=== PATIENT | male | born 1970 | race Caucasian/White ===

== ENCOUNTER 2023-10-13 16:52 | Emergency (ER) | payer BC, SELFPAY ==
[2023-10-13 17:40] VITALS: BP 184/139; PULSE 103; RESP 18; TEMP 36.7; O2SAT 97
--- NOTE | 2023-10-13 17:45 | ECG_ITS ---
Measurements Intervals [place] Rate: 93 P: -3 VA: 143 QRS: -15 QRSD: 96 T: 149 QT: 342 QTc: 427 Interpretive Statements SINUS RHYTHM LEFT VENTRICULAR HYPERTROPHY AND ST-T CHANGE [VOLTAGE CRITERIA PLUS ST/T ABNORMALITY] NO PREVIOUS ECG AVAILABLE FOR COMPARISON Electronically Signed On 10-14-2023 13:23:07 PIGMENT MAKING SUPERVISOR by Sharon Salas M.D.
[2023-10-13 21:49] VITALS: BP 171/125; PULSE 88; RESP 16; O2SAT 97
--- NOTE | 2023-10-13 22:57 | ED.RECABL ---
HPI - Recheck/Abnormal Lab/Rx General Chief Complaint: Recheck/Abnormal Lab/Rx Stated Complaint: high blood pressure Time Seen by Provider: 10/13/23 22:39 History of Present Illness HPI narrative: Patient is a 53-year-old male transitioning to female presenting with high blood pressure. She states that she is currently residing at [place]. They checked her blood pressure and was elevated so they brought her to the ER. She denies any symptoms. No chest pain or shortness of breath. States that she used to be on a blood pressure medication but she has not had it for several months due to insurance problems. Related Data Allergies Allergy/AdvReac Type Severity Reaction Status Date / Time No Known Allergies Allergy Verified 10/13/23 16:53 Review of Systems Review of Systems: All systems reviewed & are unremarkable except as noted in HPI and below Exam Narrative: GENERAL: Well-appearing, no acute distress, pleasant cooperative HEAD: Normocephalic, atraumatic. EYES: PERRLA and EOMI. ENT: grossly unremarkable NECK: Supple. CHEST: Clear to auscultation. No respiratory distress. HEART: Regular rate and rhythm. EXTREMITIES: Normal range of motion. No edema. SKIN: Warm, dry, no rash. NEURO: No focal deficits. Alert and oriented x3. PSYCH: Normal mood and affect. Course Vital Signs Vital signs: Vital Signs Temperature 98.0 F 10/13/23 17:40 Pulse Rate 103 H 10/13/23 17:40 Respiratory Rate 18 10/13/23 17:40 Blood Pressure 184/139 H 10/13/23 17:40 Pulse Oximetry 97 10/13/23 17:40 Oxygen Delivery Room Air 10/13/23 17:40 Temperature 98.0 F 10/13/23 17:40 Pulse Rate 90 10/13/23 23:38 Respiratory Rate 17 10/13/23 23:38 Blood Pressure 195/99 H 10/13/23 23:38 Pulse Oximetry 97 10/13/23 23:38 Oxygen Delivery Room Air 10/13/23 17:40 MDM - Recheck/Abnormal Lab/Rx MDM Narrative Medical decision making narrative: 53-year-old male to female presenting with asymptomatic hypertension. Blood pressures here are elevated in the 170s to 180s. EKG obtained from triage shows normal sinus rhythm, nonspecific T-wave changes, no ST elevations or depressions. Patient denies any symptoms. states that she has been out of her antihypertensives for several months. States that she only remembers amlodipine but there was another 1 as well. Send in for amlodipine and losartan. Advise that she follow closely with primary care. Appropriate return precautions given. Patient voiced understanding and is agreeable with plan. Discharged in stable condition. Differential Diagnosis Differential diagnosis: Likely encounter for medication refill and other ( Asymptomatic hypertension) Critical Care Time Critical Care Time Critical Care Time: No Discharge Plan Discharge Clinical Impression: Encounter for medication refill, Asymptomatic hypertension Patient Disposition: Home, Self-Care Condition: Stable Instructions: Antibiotic Form, Hypertension (ED) Additional Instructions: We have started you on blood pressure medications. Please take these as prescribed. Please follow-up closely with primary care. If you develop chest pain, shortness of breath, leg swelling, or other concerning symptoms arise, please return to the ER. Prescriptions: New lisinopril 10 mg tablet 10 mg PO DAILY Qty: 20 0RF amlodipine 5 mg tablet 5 mg PO DAILY Qty: 20 0RF Follow-up/Referrals: PHYSICIAN NOT ON STAFF,NONSTAFF [Non-Staff] - Juan C Funes MD [Physician] -
[2023-10-13 23:38] VITALS: BP 195/99; PULSE 90; RESP 17; O2SAT 97
== END 2023-10-13 23:40 | disposition home or self-care (01) ==
LOC: ANHED 23:15
PROVIDERS: Emergency Provider Emergency Medicine
DX: I10 Essential (primary) hypertension (principal); Z76.0 Encounter for issue of repeat prescription; I51.7 Cardiomegaly
CPT/HCPCS: 93005; 99283